=== PATIENT | male | born 1945 | race Caucasian/White ===

== ENCOUNTER 2025-02-08 14:57 | Observation (INO) | payer OTHER ==
[2025-02-08 17:14] LABS: ABSOLUTE IMMATURE GRANULOCYTES 0.02 x10^3/uL (0.0-0.031); BASOPHILS # 0.04 x10^3/uL (0.01-0.08); EOSINOPHIL % 1.4 % (0.8-7.0); EOSINOPHILS # 0.09 x10^3/uL (0.04-0.54); MCHC 34.5 g/dl (32.3-36.5); MEAN CELL VOLUME 93.0 fl (79.0-92.2); MEAN PLT VOLUME 9.6 fl (9.4-12.4); MONOCYTE # 0.65 x10^3/uL (0.30-0.82); MONOCYTE % 10.2 % (5.3-12.2); RDW 11.7 % (12.2-16.6)
[2025-02-08 17:25] LABS: INR 1.06 (0.83-1.09); PROTHROMBIN TIME (PATIENT) 11.5 SEC (9.7-13.0)
[2025-02-08 17:28] LABS: ACTIVATED PTT 30.4 SECONDS (25.2-36.5)
[2025-02-08 18:11] LABS: GLUCOSE,RANDOM 99.0 mg/dL (74-106)
[2025-02-08 18:12] LABS: TOT PROT 7.5 g/dl (6.4-8.2)
[2025-02-08 18:13] LABS: CO2 29.0 mmol/L (21-32)
[2025-02-08 18:14] LABS: ALK PHOS 64.0 U/L (40-150)
[2025-02-08 18:17] LABS: SGOT/AST 26.0 U/L (5-34); SGPT/ALT 17.0 U/L (0-55)
[2025-02-08 18:31] LABS: CREATININE 1.42 mg/dL (0.55-1.3)
[2025-02-09 04:06] VITALS: BMI 21.2
[2025-02-09 08:03] LABS: MCHC 33.9 g/dl (32.3-36.5); MEAN CELL VOLUME 93.9 fl (79.0-92.2); MEAN PLT VOLUME 9.8 fl (9.4-12.4); RDW 11.9 % (12.2-16.6)
[2025-02-09 08:58] LABS: GLUCOSE,RANDOM 126.0 mg/dL (74-106)
[2025-02-09 08:59] LABS: TOT PROT 7.1 g/dl (6.4-8.2)
[2025-02-09 09:00] LABS: CO2 30.0 mmol/L (21-32)
[2025-02-09 09:01] LABS: ALK PHOS 64.0 U/L (40-150)
[2025-02-09 09:04] LABS: SGOT/AST 24.0 U/L (5-34); SGPT/ALT 16.0 U/L (0-55)
[2025-02-09 09:05] LABS: LDL CHOLESTEROL (ONLY SJRH) 176.0 mg/dL (5-100)
[2025-02-09 09:06] LABS: CREATININE 1.45 mg/dL (0.55-1.3)
[2025-02-09] MEDS ORDERED: ASPIRIN 81 MG CHEWABLE TABLETS PO SCH (10:00)
[2025-02-09] MEDS: POTASSIUM PHOSPHATE 15 MM in SODIUM CHLORIDE 250 ML IVPB ONE ×2 (10:36→12:33)
[2025-02-09] MEDS: ASPIRIN 81 MG CHEWABLE TABLETS PO SCH (11:15)
[2025-02-09] MEDS: ENOXAPARIN NA (PORCINE) 40 MG/0.4 ML DISP.SYRIN SQ SCH (11:16)
[2025-02-09] MEDS: CLOPIDOGREL BISULFATE 75 MG TABLET (FP) PO ONE (17:04)
[2025-02-09] MEDS: CLOPIDOGREL BISULFATE 75 MG TABLET (FP) PO SCH (17:04)
[2025-02-09] MEDS: SODIUM CHLORIDE 1,000 ML IV SCH (17:42)
[2025-02-09] MEDS: ROSUVASTATIN CA 20 MG TABLET PO ONE (17:42)
[2025-02-09] MEDS ORDERED: ROSUVASTATIN CA 20 MG TABLET PO SCH (22:00)
[2025-02-09] MEDS ORDERED: ATORVASTATIN CA 40 MG TABLET (FP) PO SCH (22:00)
[2025-02-10 07:24] LABS: ABSOLUTE IMMATURE GRANULOCYTES 0.01 x10^3/uL (0.0-0.031); BASOPHILS # 0.07 x10^3/uL (0.01-0.08); EOSINOPHIL % 2.7 % (0.8-7.0); EOSINOPHILS # 0.20 x10^3/uL (0.04-0.54); MCHC 34.0 g/dl (32.3-36.5); MEAN CELL VOLUME 94.3 fl (79.0-92.2); MEAN PLT VOLUME 10.0 fl (9.4-12.4); MONOCYTE # 0.82 x10^3/uL (0.30-0.82); MONOCYTE % 11.1 % (5.3-12.2); RDW 12.1 % (12.2-16.6)
[2025-02-10 08:38] LABS: GLUCOSE,RANDOM 81.0 mg/dL (74-106); TOT PROT 7.1 g/dl (6.4-8.2)
[2025-02-10 08:39] LABS: CO2 25.0 mmol/L (21-32)
[2025-02-10 08:41] LABS: ALK PHOS 64.0 U/L (40-150)
[2025-02-10 08:43] LABS: SGOT/AST 26.0 U/L (5-34); SGPT/ALT 14.0 U/L (0-55)
[2025-02-10 08:46] LABS: CREATININE 1.29 mg/dL (0.55-1.3)
[2025-02-10] MEDS ORDERED: CLOPIDOGREL BISULFATE 75 MG TABLET (FP) PO SCH ×2 (10:00→14:45)
[2025-02-10 20:14] LABS: BF GLUCOSE (CSF ONLY) 62 mg/dL (40-70)
[2025-02-10 21:14] LABS: CSF APPEARANCE CLEAR (CLEAR); CSF WBC 0 mm3 (0-5)
[2025-02-10] MEDS: ROSUVASTATIN CA 20 MG TABLET PO SCH (22:00)
[2025-02-11 06:33] VITALS: RESP 17
[2025-02-11 07:02] LABS: ABSOLUTE IMMATURE GRANULOCYTES 0.02 x10^3/uL (0.0-0.031); BASOPHILS # 0.06 x10^3/uL (0.01-0.08); EOSINOPHIL % 2.9 % (0.8-7.0); EOSINOPHILS # 0.23 x10^3/uL (0.04-0.54); MCHC 34.7 g/dl (32.3-36.5); MEAN CELL VOLUME 92.9 fl (79.0-92.2); MEAN PLT VOLUME 9.8 fl (9.4-12.4); MONOCYTE # 0.88 x10^3/uL (0.30-0.82); MONOCYTE % 11.1 % (5.3-12.2); RDW 11.9 % (12.2-16.6)
[2025-02-11 07:49] LABS: ALK PHOS 59.0 U/L (40-150); CO2 26.0 mmol/L (21-32); CREATININE 1.28 mg/dL (0.55-1.3); GLUCOSE,RANDOM 85.0 mg/dL (74-106); SGOT/AST 25.0 U/L (5-34); SGPT/ALT 14.0 U/L (0-55); TOT PROT 6.7 g/dl (6.4-8.2)
[2025-02-11] MEDS: ASPIRIN COATED 81 MG TABLET.EC PO SCH (09:48)
[2025-02-11] MEDS: CLOPIDOGREL BISULFATE 75 MG TABLET (FP) PO SCH (09:48)
[2025-02-11 14:09] VITALS: BP 120/70; PULSE 74; TEMP 98.4
[2025-02-14 17:06] LABS: ALBUMIN SERUM 4.6 g/dL (3.8-4.8); IG G QN IMMUNOGLOBULIN 1170 mg/dL (603-1613); IGG/ALB RATIO CSF 0.14 (0.00-0.25)
[2025-02-15 01:06] LABS: MYELIN BASIC PROTEIN,CSF 5.3 ng/mL (0.0-5.4)
[2025-02-15 10:06] LABS: LYME PCR CSF Negative (Negative)
== END 2025-02-11 18:18 | disposition home or self-care (01) ==
LOC: JER 14:57 → JERBED 21:10 → INTOOBSV 21:10 → J6W TELE 02-09 03:29
PROVIDERS: ADMIT Internal Medicine; ATTEND Internal Medicine
PROC: 009U3ZX Drainage of Spinal Canal, Percutaneous Approach, Diagnostic (ICD-10-PCS; principal; 2025-02-08)
PROC: 3E023GC Introduction of Other Therapeutic Substance into Muscle, Percutaneous Approach (ICD-10-PCS; 2025-02-08)
PROC: 3E033GC Introduction of Other Therapeutic Substance into Peripheral Vein, Percutaneous Approach (ICD-10-PCS; 2025-02-08)
DX: G45.3 Amaurosis fugax (principal); G36.0 Neuromyelitis optica [Devic]; N17.9 Acute kidney failure, unspecified; H53.2 Diplopia
CPT/HCPCS: 36415; 70450-TC; 70496-TC; 70552-TC; 80053; 80061; 82248; 82784; 82787; 82945; 82962; 83036; 83520; 83735; 83873; 83916; 84100; 84157; 84439; 84443; 84484; 85025; 85027; 85610; 85651; 85730; 86038; 86140; 86592; 86618; 86644; 86645; 86663; 86664; 86665; 86780; 86850; 86900; 86901; 87070; 87205; 87476; 87529; 93005; 93010; 93306-TC; 93880-TC; 97116-GP; 97161-GP; 99285-25; G0378; Q9967